=== PATIENT | male | born 1995 | race African-American/Black ===

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

== ENCOUNTER 2017-01-06 10:16 | Emergency (ER) | payer MEDICAID | END 2017-01-06 11:07 | disposition home or self-care (01) | LOC: D.ER 10:16 | DX: J06.9 Acute upper respiratory infection, unspecified (principal); J01.90 Acute sinusitis, unspecified; F17.200 Nicotine dependence, unspecified, uncomplicated ==

== ENCOUNTER 2017-05-25 22:00 | Emergency (ER) | payer MEDICAID ==
[2017-05-30 13:40] VITALS: BMI 23.7
== END 2017-05-26 00:08 | disposition left against medical advice (07) ==
LOC: D.ER 22:00
DX: R05 Cough (principal)

== ENCOUNTER 2017-05-29 11:09 | Inpatient (IN) | payer MEDICAID ==
[~2017-05-29] VITALS: Ht 177.8 cm; Wt 75.0 kg
[2017-05-29 12:31] LABS: BASOPHILS 0.1 % (0-2); EOSINOPHILS 0.1 % (0-7); HEMATOCRIT 40.6 % (42.0-54.0); HEMOGLOBIN 14.2 g/dL (13.5-17.5); IMMATURE GRANULOCYTES 0.3 % (0-5); LYMPHOCYTES 10.5 % (15-50); MCH 28.5 pg (26.0-34.0); MCV 81.4 fL (80.0-100.0); MEAN PLATELET VOLUME 8.9 fL (7.4-10.4); MONOCYTES 12.2 % (2-11); NEUTROPHILS 76.8 % (40-80); PLATELET COUNT 143 10x3/uL (130-400); RBC 4.99 10x6/uL (4.20-6.10); RDW 12.6 % (11.5-14.5); WBC 9.6 10x3/uL (4.8-10.8)
[2017-05-29 12:44] LABS: ALBUMIN 3.5 g/dL (3.4-5.0); ANION GAP 14.7 mmol/L (8-16); BILIRUBIN - TOTAL 0.75 mg/dL (0.2-1.3); CALCIUM 8.1 mg/dL (8.5-10.1); CARBON DIOXIDE 22.6 mmol/L (21.0-32.0); CREATININE - SERUM 1.4 mg/dL (0.6-1.3); MAGNESIUM - SERUM 1.4 mg/dL (1.8-2.4); POTASSIUM - SERUM 3.3 mmol/L (3.5-5.1); PROTEIN - SERUM 6.9 g/dL (6.4-8.2)
[2017-05-29 13:25] LABS: APPEARANCE CLEAR (CLEAR); COLOR STRAW (YELLOW); GLUCOSE NEGATIVE (NEGATIVE); NITRITE NEGATIVE (NEGATIVE); PROTEIN NEGATIVE (NEGATIVE)
[2017-05-29 13:26] LABS: BILIRUBIN NEGATIVE (NEGATIVE); KETONE SMALL mg/dL (NEGATIVE); UROBILINOGEN NORMAL (NORMAL)
[2017-05-29 17:47] LABS: ALBUMIN 3.3 g/dL (3.4-5.0); ALKALINE PHOSPHATASE 44 U/L (46-116); ALT (SGPT) 36 U/L (10-68); BILIRUBIN - TOTAL 0.78 mg/dL (0.2-1.3); CALC OSMOLALITY 276 mosm/kg (275-300); CALCIUM 8.1 mg/dL (8.5-10.1); CHLORIDE - SERUM 102 mmol/L (98-107); CREATININE - SERUM 1.3 mg/dL (0.6-1.3); GLUCOSE 111 mg/dL (74-106); PROTEIN - SERUM 6.7 g/dL (6.4-8.2); SODIUM 138 mmol/L (136-145); UREA NITROGEN 13 mg/dL (7-18); eGFR NON AFRICAN AMERICAN 75 mL/min (90-120)
[2017-05-29 17:48] LABS: CARBON DIOXIDE 28.5 mmol/L (21.0-32.0); POTASSIUM - SERUM 4.5 mmol/L (3.5-5.1)
[2017-05-30 07:28] LABS: BASOPHILS 0.1 % (0-2); EOSINOPHILS 1.1 % (0-7); HEMATOCRIT 41.1 % (42.0-54.0); HEMOGLOBIN 13.9 g/dL (13.5-17.5); IMMATURE GRANULOCYTES 0.3 % (0-5); LYMPHOCYTES 19.4 % (15-50); MCH 28.1 pg (26.0-34.0); MCHC 33.8 g/dL (31.0-37.0); MCV 83.2 fL (80.0-100.0); MEAN PLATELET VOLUME 9.3 fL (7.4-10.4); NEUTROPHILS 70.1 % (40-80); PLATELET COUNT 147 10x3/uL (130-400); RBC 4.94 10x6/uL (4.20-6.10); RDW 13.2 % (11.5-14.5); WBC 9.8 10x3/uL (4.8-10.8)
[2017-05-30 08:12] LABS: ALBUMIN 3.1 g/dL (3.4-5.0); ALKALINE PHOSPHATASE 48 U/L (46-116); ALT (SGPT) 30 U/L (10-68); BILIRUBIN - TOTAL 0.51 mg/dL (0.2-1.3); CALCIUM 8.3 mg/dL (8.5-10.1); CARBON DIOXIDE 27.2 mmol/L (21.0-32.0); CHLORIDE - SERUM 106 mmol/L (98-107); GLUCOSE 101 mg/dL (74-106); POTASSIUM - SERUM 4.4 mmol/L (3.5-5.1); PROTEIN - SERUM 6.6 g/dL (6.4-8.2); SODIUM 141 mmol/L (136-145); eGFR NON AFRICAN AMERICAN > 90 mL/min (90-120)
[2017-05-30 08:13] LABS: CALC OSMOLALITY 282 mosm/kg (275-300); UREA NITROGEN 17 mg/dL (7-18)
[2017-05-30 13:32] VITALS: BP 122/70; BMI 23.4
[2017-05-30 13:40] VITALS: BP 122/70; Ht 177.8 cm; Wt 75.0 kg
[2017-05-30 16:23] VITALS: BP 116/58
[2017-05-30 20:00] VITALS: BP 130/61
[2017-05-31] VITALS (7 sets, daily range): BP systolic 101–121; BP diastolic 51–66
[2017-05-31 05:03] LABS: BASOPHILS 0.2 % (0-2); EOSINOPHILS 2.3 % (0-7); HEMATOCRIT 40.1 % (42.0-54.0); HEMOGLOBIN 13.5 g/dL (13.5-17.5); IMMATURE GRANULOCYTES 0.2 % (0-5); LYMPHOCYTES 30.4 % (15-50); MCH 28.1 pg (26.0-34.0); MCHC 33.7 g/dL (31.0-37.0); MCV 83.5 fL (80.0-100.0); MEAN PLATELET VOLUME 9.6 fL (7.4-10.4); MONOCYTES 8.5 % (2-11); NEUTROPHILS 58.4 % (40-80); PLATELET COUNT 169 10x3/uL (130-400); RDW 13.2 % (11.5-14.5); WBC 8.8 10x3/uL (4.8-10.8)
[2017-05-31 05:08] LABS: CALC OSMOLALITY 277 mosm/kg (275-300); CALCIUM 8.2 mg/dL (8.5-10.1); CARBON DIOXIDE 25.9 mmol/L (21.0-32.0); CHLORIDE - SERUM 106 mmol/L (98-107); CREATININE - SERUM 0.9 mg/dL (0.6-1.3); GLUCOSE 95 mg/dL (74-106); POTASSIUM - SERUM 4.9 mmol/L (3.5-5.1); SODIUM 139 mmol/L (136-145); UREA NITROGEN 13 mg/dL (7-18); eGFR NON AFRICAN AMERICAN > 90 mL/min (90-120)
[2017-06-01 04:00] VITALS: BP 105/54
[2017-06-01] MEDS ORDERED: ZITHROMAX250 MG PO (07:36)
[2017-06-01 09:07] VITALS: BP 122/59
== END 2017-06-01 10:24 | disposition home or self-care (01) | DRG 195 ==
LOC: D.ER 11:09 → D.EDHOLD 22:06 → D.MS 05-30 16:17
PROVIDERS: Family Medicine; Nurse Practitioner Family
DX: J18.9 Pneumonia, unspecified organism (principal); F32.9 Major depressive disorder, single episode, unspecified

== ENCOUNTER 2017-07-15 19:11 | Emergency (ER) | payer MEDICAID ==
[2017-05-30 13:40] VITALS: BMI 23.7
[~2017-07-15 19:11] MED LIST: ZITHROMAX250 MG PO
[2017-07-15 19:35] LABS: BASOPHILS 0.2 % (0-2); EOSINOPHILS 3.9 % (0-7); HEMATOCRIT 43.8 % (42.0-54.0); HEMOGLOBIN 15.3 g/dL (13.5-17.5); LYMPHOCYTES 41.6 % (15-50); MCH 29.1 pg (26.0-34.0); MCHC 34.9 g/dL (31.0-37.0); MCV 83.3 fL (80.0-100.0); MEAN PLATELET VOLUME 9.3 fL (7.4-10.4); MONOCYTES 10.9 % (2-11); NEUTROPHILS 42.4 % (40-80); PLATELET COUNT 164 10x3/uL (130-400); RBC 5.26 10x6/uL (4.20-6.10); RDW 12.8 % (11.5-14.5); WBC 4.1 10x3/uL (4.8-10.8)
[2017-07-15 20:02] LABS: ALBUMIN 3.1 g/dL (3.4-5.0); ALKALINE PHOSPHATASE 49 U/L (46-116); ALT (SGPT) 18 U/L (10-68); CALC OSMOLALITY 277 mosm/kg (275-300); CALCIUM 8.4 mg/dL (8.5-10.1); CARBON DIOXIDE 29.6 mmol/L (21.0-32.0); CHLORIDE - SERUM 109 mmol/L (98-107); CREATINE KINASE 150 UL (21-232); GLUCOSE 92 mg/dL (74-106); POTASSIUM - SERUM 3.5 mmol/L (3.5-5.1); SODIUM 140 mmol/L (136-145); UREA NITROGEN 10 mg/dL (7-18); eGFR NON AFRICAN AMERICAN > 90 mL/min (90-120)
[2017-07-15 21:15] LABS: APPEARANCE CLEAR (CLEAR); BILIRUBIN NEGATIVE (NEGATIVE); COLOR STRAW (YELLOW); GLUCOSE NEGATIVE (NEGATIVE); KETONE NEGATIVE (NEGATIVE); NITRITE NEGATIVE (NEGATIVE); PH 7.5 (5.0-6.0); PROTEIN NEGATIVE (NEGATIVE); SPECIFIC GRAVITY 1.005 (1.005-1.020); UROBILINOGEN NORMAL (NORMAL)
[2017-07-15 21:23] LABS: UDS - AMPHET NEGATIVE QUAL (NEGATIVE); UDS - BARB NEGATIVE QUAL (NEGATIVE); UDS - BENZO NEGATIVE QUAL (NEGATIVE); UDS - COCAINE NEGATIVE QUAL (NEGATIVE); UDS - OPIATE NEGATIVE QUAL (NEGATIVE); UDS - PCP NEGATIVE QUAL (NEGATIVE); UDS - THC POSITIVE QUAL (NEGATIVE)
== END 2017-07-15 21:32 | disposition home or self-care (01) ==
LOC: D.ER 19:11
PROVIDERS: Family Medicine
DX: R55 Syncope and collapse (principal)

== ENCOUNTER 2018-11-20 17:54 | Emergency (ER) | payer MEDICAID ==
[~2018-11-20] VITALS: Ht 177.8 cm; Wt 63.6 kg
[2018-11-20 18:31] VITALS: Ht 177.8 cm; Wt 63.6 kg
[2018-11-20] MEDS ORDERED: FLAGYL500 MG PO (18:41)
[2018-11-20 19:10] VITALS: BP 132/100
[2018-11-20 19:19] LABS: APPEARANCE CLEAR (CLEAR); BILIRUBIN NEGATIVE (NEGATIVE); COLOR YELLOW (YELLOW); GLUCOSE NEGATIVE (NEGATIVE); KETONE NEGATIVE (NEGATIVE); NITRITE NEGATIVE (NEGATIVE); PROTEIN NEGATIVE (NEGATIVE); SPECIFIC GRAVITY 1.015 (1.005-1.020); UROBILINOGEN NORMAL (NORMAL)
[2018-11-20 19:23] LABS: BACTERIA FEW /hpf (NONE SEEN); RED CELLS - URINE 0-5 /hpf (0-5); WHITE CELLS - URINE 25-50 /hpf (0-5)
== END 2018-11-20 19:10 | disposition home or self-care (01) ==
LOC: D.ER 17:54
PROVIDERS: Emergency Medicine
DX: Z20.828 Contact with and (suspected) exposure to other viral communicable diseases (principal)

== ENCOUNTER 2019-03-28 19:32 | Emergency (ER) | payer MEDICAID ==
[~2019-03-28] VITALS: Ht 177.8 cm; Wt 60.3 kg
[~2019-03-28 19:32] MED LIST changes: +FLAGYL500 MG PO
[2019-03-28 19:50] VITALS: BP 118/52; Ht 177.8 cm; Wt 60.3 kg
== END 2019-03-28 22:38 | disposition home or self-care (01) ==
LOC: D.ER 19:32
DX: R60.9 Edema, unspecified (principal)

== ENCOUNTER 2019-10-15 13:17 | Emergency (ER) | payer MEDICAID ==
[~2019-10-15] VITALS: Ht 177.8 cm; Wt 72.7 kg
[2019-10-15 13:19] VITALS: Ht 177.8 cm; Wt 72.7 kg
[2019-10-15 14:11] LABS: BASOPHILS 0.3 % (0-2); EOSINOPHILS 1.2 % (0-7); HEMATOCRIT 37.9 % (42.0-54.0); HEMOGLOBIN 12.9 g/dL (13.5-17.5); LYMPHOCYTES 23.7 % (15-50); MCH 28.5 pg (26.0-34.0); MCV 83.8 fL (80.0-100.0); MEAN PLATELET VOLUME 8.6 fL (7.4-10.4); MONOCYTES 8.9 % (2-11); NEUTROPHILS 65.9 % (40-80); PLATELET COUNT 162 10x3/uL (130-400); RBC 4.52 10x6/uL (4.20-6.10); RDW 12.7 % (11.5-14.5); WBC 3.3 10x3/uL (4.8-10.8)
[2019-10-15 14:18] LABS: APTT 26.5 SECONDS (22.8-39.4)
[2019-10-15 14:19] LABS: INR 1.2 (0.85-1.17); PROTIME 15.1 SECONDS (11.6-15.0)
[2019-10-15 14:20] LABS: CALC OSMOLALITY 281 mosm/kg (275-300); CALCIUM 9.2 mg/dL (8.5-10.1); CARBON DIOXIDE 29.2 mmol/L (21.0-32.0); CHLORIDE - SERUM 107 mmol/L (98-107); GLUCOSE 90 mg/dL (74-106); POTASSIUM - SERUM 3.7 mmol/L (3.5-5.1); SODIUM 141 mmol/L (136-145); UREA NITROGEN 14 mg/dL (7-18); eGFR NON AFRICAN AMERICAN > 90 mL/min (90-120)
[2019-10-15 14:24] LABS: ALBUMIN 3.9 g/dL (3.4-5.0); ALKALINE PHOSPHATASE 53 U/L (30-120); ALT (SGPT) 18 U/L (10-68); BILIRUBIN - TOTAL 0.29 mg/dL (0.2-1.3); PROTEIN - SERUM 6.7 g/dL (6.4-8.2)
[2019-10-15 15:58] LABS: BILIRUBIN NEGATIVE (NEGATIVE); GLUCOSE NEGATIVE (NEGATIVE); KETONE NEGATIVE (NEGATIVE); NITRITE NEGATIVE (NEGATIVE); UROBILINOGEN NORMAL (NORMAL)
[2019-10-15] MEDS ORDERED: HYDROCODON-ACE1 EA10 PO ×2 (16:34→16:37)
[2019-10-15] MEDS ORDERED: KEFLEX500 MG PO ×2 (16:34→16:37)
[2019-10-15 18:21] VITALS: BP 129/63
== END 2019-10-15 18:22 | disposition home or self-care (01) ==
LOC: D.ER 13:17
PROVIDERS: Family Medicine
DX: J32.9 Chronic sinusitis, unspecified (principal); S62.231A Other displaced fracture of base of first metacarpal bone, right hand, initial encounter for closed fracture; M79.18 Myalgia, other site; M79.601 Pain in right arm; T14.8XXA Other injury of unspecified body region, initial encounter; V09.9XXA Pedestrian injured in unspecified transport accident, initial encounter; Y93.9 Activity, unspecified; Y92.9 Unspecified place or not applicable

== ENCOUNTER 2020-05-20 00:57 | Emergency (ER) | payer MEDICAID ==
[~2020-05-20] VITALS: Ht 177.8 cm; Wt 70.5 kg
[~2020-05-20 00:57] MED LIST changes: +HYDROCODON-ACE1 EA10 PO; +KEFLEX500 MG PO
[2020-05-20 01:00] VITALS: Ht 177.8 cm; Wt 70.5 kg
[2020-05-20 01:36] LABS: BASOPHILS 0.2 % (0-2); EOSINOPHILS 1.7 % (0-7); HEMOGLOBIN 15.2 g/dL (13.5-17.5); IMMATURE GRANULOCYTES 0.1 % (0-5); LYMPHOCYTE ABS# 1.41 10x3/uL (1.32-3.57); LYMPHOCYTES 17.1 % (15-50); MCH 28.7 pg (26.0-34.0); MCHC 34.5 g/dL (31.0-37.0); MEAN PLATELET VOLUME 9.2 fL (7.4-10.4); MONOCYTES 9.9 % (2-11); NEUTROPHIL ABS# 5.85 10x3/uL (1.78-5.38); PLATELET COUNT 178 10x3/uL (130-400); RDW 12.5 % (11.5-14.5); WBC 8.3 10x3/uL (4.8-10.8)
[2020-05-20 01:40] LABS: ANION GAP 12.3 mmol/L (8-16); CALCIUM 8.9 mg/dL (8.5-10.1); CARBON DIOXIDE 27.3 mmol/L (21.0-32.0); CREATININE - SERUM 1.3 mg/dL (0.6-1.3); POTASSIUM - SERUM 3.6 mmol/L (3.5-5.1)
[2020-05-20 01:46] LABS: ALBUMIN 4.3 g/dL (3.4-5.0); BILIRUBIN - TOTAL 0.77 mg/dL (0.2-1.3)
[2020-05-20 01:55] LABS: INFLUENZA TYPE A NEGATIVE (NEGATIVE)
[2020-05-20 01:56] LABS: INFLUENZA TYPE B POSITIVE (NEGATIVE)
[2020-05-20] MEDS ORDERED: TAMIFLU75 MG PO (02:00)
[2020-05-20 03:03] VITALS: BP 112/70
== END 2020-05-20 03:03 | disposition home or self-care (01) ==
LOC: D.ER 00:57
PROVIDERS: Family Medicine
DX: J11.1 Influenza due to unidentified influenza virus with other respiratory manifestations (principal); Z72.0 Tobacco use